=== PATIENT | female | born 2000 | race Hispanic/Latino ===

== ENCOUNTER 2021-09-07 11:53 | Emergency (ER) | payer OTHER ==
[2021-09-07] MEDS ORDERED: Rabies Vaccine Human 2.5 UNITS VIAL ONE (13:18)
== END 2021-09-07 14:04 | disposition home or self-care (01) ==
LOC: CSHERS 11:53
DX: Z20.3 Contact with and (suspected) exposure to rabies (principal)
CPT/HCPCS: 90375; 90471; 90675; 96372; 99283

== ENCOUNTER 2021-09-11 17:46 | Day surgery (SDC) | payer OTHER ==
[2021-09-11] MEDS ORDERED: Rabies Vaccine Human 2.5 UNITS VIAL ONE (18:05)
== END 2021-09-11 18:30 | disposition home or self-care (01) ==
LOC: CSHER/OP 17:46
PROVIDERS: ATTEND Pathology Anatomic Pathology & Clinical Pathology
DX: Z23 Encounter for immunization (principal)
CPT/HCPCS: 90471; 90675

== ENCOUNTER → 2021-09-17 | Day surgery (SDC) | payer OTHER ==
[~2021-09-17] MED LIST: Rabies Vaccine Human 2.5 UNITS VIAL ONE
== END ==
LOC: CSHER/OP 15:44
PROVIDERS: ATTEND Pathology Anatomic Pathology & Clinical Pathology
DX: Z23 Encounter for immunization (principal)
CPT/HCPCS: 90675

== ENCOUNTER → 2021-09-23 | Day surgery (SDC) | payer OTHER | END | disposition home or self-care (01) | LOC: CSHER/OP 09:15 | PROVIDERS: ATTEND Emergency Medicine | DX: Z23 Encounter for immunization (principal) | CPT/HCPCS: 90471 ==